=== PATIENT | female | born 1990 | race Caucasian/White ===

== ENCOUNTER → 2020-11-21 15:43 | Outpatient (CLI) | payer OTHER ==
[2020-11-21 16:00] LABS: BASOPHILS 0.1 % (0-2); EOSINOPHILS 5.1 % (0-7); HEMATOCRIT 38.4 % (36.0-48.0); HEMOGLOBIN 12.5 g/dL (12-16); IMMATURE GRANULOCYTES 0.2 % (0-5); LYMPHOCYTE ABS# 1.84 10x3/uL (1.18-3.74); LYMPHOCYTES 21.3 % (15-50); MCH 28.3 pg (26.0-34.0); MCHC 32.6 g/dL (31.0-37.0); MCV 87.1 fL (80.0-100.0); MEAN PLATELET VOLUME 10.8 fL (7.4-10.4); MONOCYTES 6.1 % (2-11); NEUTROPHIL ABS# 5.79 10x3/uL (1.56-6.13); NEUTROPHILS 67.2 % (40-80); PLATELET COUNT 218 10x3/uL (130-400); RBC 4.41 10x6/uL (4.00-5.40); RDW 13.3 % (11.5-14.5); WBC 8.6 10x3/uL (4.8-10.8)
[2020-11-21 16:06] LABS: CREATININE - URINE 58.4 mg/dL (30-125)
[2020-11-21 16:08] LABS: CREATININE - SERUM 1.2 mg/dL (0.6-1.3); CREATININE CLEARANCE 84 ml/min (78-116)
[2020-11-21 16:10] LABS: ANION GAP 17.8 mmol/L (8-16); CALCIUM 8.6 mg/dL (8.5-10.1); CARBON DIOXIDE 19.8 mmol/L (21.0-32.0); CREATININE - SERUM 1.2 mg/dL (0.6-1.3); PHOSPHOROUS 4.1 mg/dL (2.5-4.9); POTASSIUM - SERUM 3.6 mmol/L (3.5-5.1)
[2020-11-21 16:15] LABS: PROTEIN - 24HR URINE 573 mg/24hr (0-149.1); PROTEIN - URINE 22.9 mg/dL (0.0-11.9)
== END | disposition home or self-care (01) ==
LOC: D.LAB 11-19 13:18
PROVIDERS: ATTEND Internal Medicine Nephrology
DX: N18.9 Chronic kidney disease, unspecified (principal); R80.9 Proteinuria, unspecified; I10 Essential (primary) hypertension; G93.2 Benign intracranial hypertension